=== PATIENT | female | born 1985 | race Two or more races ===

== ENCOUNTER 2018-08-21 01:04 | Emergency (ER) | payer MEDICAID, OTHER ==
[~2018-08-21] VITALS: Ht 154.9 cm; Wt 47.6 kg
--- NOTE | 2018-08-21 01:38 | NUR ---
BIBF. C/O "HAVING ABD PAIN FOR ABOUT AN HOUR NOW, +DIARRHEA, FEELING NAUSEOUS" AOX4. AMBULATORY -SOB NOTED. -ACUTE DISTRESS.
[2018-08-21] MEDS ORDERED: MORPHINE SULFATE INJ 4 MG/ML DISP.SYRIN ONE (01:40)
[2018-08-21] MEDS ORDERED: ONDANSETRON HCL/PF 4 MG/2 ML VIAL ONE (01:40)
[2018-08-21 01:54] LABS: APPEARANCE,URINE CLEAR (CLEAR); BILIRUBIN,URINE NEGATIVE (NEGATIVE); BLOOD, URINE NEGATIVE Ery/uL (NEGATIVE); COLOR,URINE YELLOW (YELLOW); KETONES,URINE 1+ (NEGATIVE); LEUKOCYTE ESTERASE ,URINE 1+ (NEGATIVE); NITRITE, URINE NEGATIVE (NEGATIVE); PROTEIN,URINE TRACE mg/dl (NEGATIVE); UGLUCOSE NEGATIVE (NEGATIVE); UROBILINOGEN,URINE 0.2 EU/dL (0.2)
[2018-08-21 01:55] LABS: BASOPHILS % (AUTO) 0.3 % (0.0-2.0); EOSINOPHILS % (AUTO) 2.6 % (0.0-6.0); HEMATOCRIT 39 % (33-45); HEMOGLOBIN 13.7 g/dL (11.5-14.8); LYMPHOCYTES # (AUTO) 3.1 /CMM (0.8-4.8); LYMPHOCYTES % (AUTO) 34.5 % (20.0-44.0); MEAN CORPUSCULAR HGB CONC 35 g/dl (31.0-36.0); MEAN CORPUSCULAR VOLUME 87 fL (82-100); MONOCYTES # (AUTO) 0.5 /CMM (0.1-1.30); MONOCYTES % (AUTO) 5.7 % (2.0-12.0); NEUTROPHILS # (AUTO) 5.1 /CMM (1.8-8.9); NEUTROPHILS % (AUTO) 56.9 % (43.0-81.0); PLATELET COUNT (AUTO) 204 /CMM (150-450); RED BLOOD CELL COUNT(AUTO) 4.53 MIL/uL (4.0-5.2)
[2018-08-21] MEDS ORDERED: IV NS 0.9% 1,000 ML BAG IV ONE (02:00)
[2018-08-21] MEDS ORDERED: ONDANSETRON HCL/PF 4 MG/2 ML VIAL IVP ONE (02:00)
[2018-08-21] MEDS ORDERED: MORPHINE SULFATE INJ 2 MG/ML DISP.SYRIN IV ONE (02:00)
[2018-08-21 02:06] LABS: CALCIUM, SERUM 8.7 mg/dL (8.5-10.1); CARBON DIOXIDE 25 mmol/L (21-32); CHLORIDE 104 mmol/L (98-107); CREATININE 0.6 mg/dL (0.6-1.3); GLUCOSE 107 mg/dL (74-106); POTASSIUM 3.5 mmol/L (3.5-5.1); SODIUM SERUM 139 mmol/L (136-145); UREA NITROGEN, BLOOD 18 mg/dL (7-18)
[2018-08-21 02:11] LABS: ALANINE AMINOTRANSFERASE 19 U/L (12-78); ALBUMIN 3.9 g/dL (3.4-5.0); ALKALINE PHOSPHATASE 35 U/L (46-116); ASPARTATE AMINOTRANSFERASE 10 U/L (15-37); BILIRUBIN,DIRECT 0.2 mg/dL (0.0-0.2); BILIRUBIN,TOTAL 0.9 mg/dL (0.2-1.0); LIPASE 167 U/L (73-393); TOTAL PROTEIN, SERUM 7.4 g/dL (6.4-8.2)
[2018-08-21 02:13] LABS: BACTERIA,URINE None seen /HPF (None Seen); RBC,URINE 0-2 /HPF (0-2); SQUAMOUS EPITHELIAL CELL,UR Few /HPF (None Seen); WBC,URINE 0-2 /HPF (0-3)
[2018-08-21 04:51] VITALS: BP 112/76
== END 2018-08-21 04:51 | disposition home or self-care (01) ==
LOC: ER 01:05
DX: N83.292 Other ovarian cyst, left side (principal); K59.00 Constipation, unspecified; Z98.890 Other specified postprocedural states; Z98.51 Tubal ligation status
CPT/HCPCS: 36415; 74176; 76856; 80048; 80076; 81001; 83690; 84484; 84703; 85025; 85730; 87086; 96374; 96375; 99284; J2270; J2405; J7030; 81000-TC

== ENCOUNTER 2019-05-29 18:35 | Emergency (ER) | payer MEDICAID, OTHER ==
[~2019-05-29] VITALS: Ht 157.5 cm; Wt 48.5 kg
[2019-05-29 19:33] VITALS: BP 98/64
== END 2019-05-29 20:38 | disposition home or self-care (01) ==
LOC: ER 18:35
DX: J06.9 Acute upper respiratory infection, unspecified (principal); Z98.890 Other specified postprocedural states
CPT/HCPCS: 71045-TC

== ENCOUNTER 2022-08-27 23:48 | Emergency (ER) | payer MEDICAID, OTHER ==
[~2022-08-27] VITALS: Ht 154.9 cm; Wt 49.9 kg
--- NOTE | 2022-08-28 00:35 | NUR ---
BIBMOTHER WITH CC OF PAINFUL URINATION WITH BLOOD TINGE STARTED TODAY. PT TOOK TYLENOL 1GM AT 2030H AND SOME ANTIBIOTICS. PT AAOX4, PLACED COMFORTABLY IN BED, VITALS CHECKED.
--- NOTE | 2022-08-28 00:40 | NUR ---
URINE COLLECTED AND SENT TO LAB
[2022-08-28 01:11] LABS: BACTERIA,URINE Rare /HPF (None Seen); BILIRUBIN,URINE NEGATIVE (NEGATIVE); COLOR,URINE DARK YELLOW (YELLOW); LEUKOCYTE ESTERASE ,URINE NEGATIVE (NEGATIVE); NITRITE, URINE NEGATIVE (NEGATIVE); PROTEIN,URINE 2+ mg/dl (NEGATIVE); RBC,URINE 21-50 /HPF (0-2); SQUAMOUS EPITHELIAL CELL,UR Few /HPF (None Seen); UGLUCOSE NEGATIVE (NEGATIVE)
[2022-08-28] MEDS ORDERED: NITR100C6 PO (01:45)
--- NOTE | 2022-08-28 01:54 | NUR ---
Patient discharged to home in stable condition. Written and verbal after care instructions given. Patient verbalizes understanding of instruction.
[2022-08-28 01:55] VITALS: BP 101/74
== END 2022-08-28 02:36 | disposition home or self-care (01) ==
LOC: ER 23:50
DX: N39.0 Urinary tract infection, site not specified (principal)
CPT/HCPCS: 81001; 84703-TC

== ENCOUNTER 2024-08-20 21:18 | Emergency (ER) | payer OTHER ==
[~2024-08-20] VITALS: Ht 154.9 cm; Wt 51.7 kg
[~2024-08-20 21:18] MED LIST: NITR100C6 PO
[2024-08-20 22:31] LABS: BASOPHILS # (AUTO) 0.1 K/uL (0.0-0.2); BASOPHILS % (AUTO) 0.6 % (0.0-2.0); EOSINOPHILS # (AUTO) 0.3 K/uL (0.0-0.7); EOSINOPHILS % (AUTO) 2.8 % (0.0-6.0); HEMATOCRIT 39 % (33-45); HEMOGLOBIN 13.9 g/dL (11.5-14.8); LYMPHOCYTES # (AUTO) 3.3 K/uL (0.8-4.8); LYMPHOCYTES % (AUTO) 30.1 % (20.0-44.0); MEAN CORPUSCULAR HEMOGLOBIN 31 PG (26.0-33.0); MEAN CORPUSCULAR HGB CONC 36 g/dl (31.0-36.0); MEAN CORPUSCULAR VOLUME 86 fL (82-100); MONOCYTES # (AUTO) 0.6 K/uL (0.1-1.30); MONOCYTES % (AUTO) 5.5 % (2.0-12.0); NEUTROPHILS # (AUTO) 6.6 K/uL (1.8-8.9); PLATELET COUNT (AUTO) 222 K/uL (150-450); RED BLOOD CELL COUNT(AUTO) 4.54 MIL/uL (4.0-5.2); RED CELL DISTRIBUTION WIDTH 12.7 % (11.5-15.0); WHITE BLOOD COUNT (AUTO) 10.8 K/uL (4.3-11.0)
[2024-08-20 22:41] LABS: CALCIUM, SERUM 9.5 mg/dL (8.5-10.1); CREATININE 0.6 mg/dL (0.6-1.3); POTASSIUM 3.7 mmol/L (3.5-5.1)
[2024-08-20 22:49] LABS: BILIRUBIN,DIRECT 0.2 mg/dL (0.0-0.2); TOTAL PROTEIN, SERUM 7.7 g/dL (6.4-8.2)
[2024-08-20] MEDS ORDERED: FAMO20TA80 PO (23:07)
[2024-08-20] MEDS ORDERED: PANT40TA49 PO (23:07)
[2024-08-20] MEDS: PANTOPRAZOLE 40 MG VIAL IV ONE (23:11)
[2024-08-20] MEDS: KETOROLAC TROMETHAMINE 15 MG/ML VIAL IV ONE (23:11)
[2024-08-20] MEDS: FAMOTIDINE/PF INJ 20 MG/2 ML VIAL IV ONE (23:11)
[2024-08-20 23:26] LABS: APPEARANCE,URINE SLIGHTLY CLOUDY (CLEAR); BILIRUBIN,URINE NEGATIVE (NEGATIVE); BLOOD, URINE NEGATIVE Ery/uL (NEGATIVE); COLOR,URINE YELLOW (YELLOW); KETONES,URINE NEGATIVE (NEGATIVE); LEUKOCYTE ESTERASE ,URINE NEGATIVE (NEGATIVE); NITRITE, URINE NEGATIVE (NEGATIVE); PH,URINE 7.5 (5.0-8.0); PROTEIN,URINE NEGATIVE (NEGATIVE); UGLUCOSE NEGATIVE (NEGATIVE); UROBILINOGEN,URINE 0.2 EU/dL (0.2)
[2024-08-20 23:49] LABS: PREGNANCY TEST URINE QUAL NEGATIVE (NEGATIVE)
[2024-08-20 23:55] LABS: SQUAMOUS EPITHELIAL CELL,UR Many /HPF (None Seen)
[2024-08-20 23:56] LABS: ADD URINE CULTURE NO; BACTERIA,URINE Few /HPF (None Seen); RBC,URINE 0-2 /HPF (0-2); WBC,URINE 0-2 /HPF (0-3)
[2024-08-21 00:44] VITALS: BP 108/60; TEMP 98.4; O2SAT 98
== END 2024-08-21 00:49 | disposition home or self-care (01) ==
LOC: ER 21:18
DX: K29.70 Gastritis, unspecified, without bleeding (principal); Z98.51 Tubal ligation status; Z79.899 Other long term (current) drug therapy
CPT/HCPCS: 99284; 96374; 96375; 85025; 80048; 83690; 80076; 84703; 81001; 36415; J1308; J2470; J1885